=== PATIENT | male | born 2000 | race African-American/Black ===

== ENCOUNTER 2018-03-08 23:40 | Emergency (ER) | payer MEDICAID ==
[~2018-03-08] VITALS: Ht 172.7 cm; Wt 93.9 kg
[~2018-03-08 23:40] MED LIST: ATIVAN1 MG PO; CATAPRES0.1 MG; CLARITIN10 MG PO; LATUDA40 MG PO; PROZAC20 MG PO; TRAZODONE HCL50 MG PO; ZIPRASIDONE HCL20 M2
[2018-03-09 00:57] VITALS: BP 124/94
== END 2018-03-09 00:57 | disposition home or self-care (01) ==
LOC: M.ERS 23:40
DX: S01.81XA Laceration without foreign body of other part of head, initial encounter (principal); W22.09XA Striking against other stationary object, initial encounter; Y93.89 Activity, other specified; Y92.89 Other specified places as the place of occurrence of the external cause; Y99.8 Other external cause status; J45.909 Unspecified asthma, uncomplicated